=== PATIENT | female | born 1990 | race American Indian/Alaskan Native ===

== ENCOUNTER 2019-02-18 22:04 | Inpatient (IN) | payer OTHER, MEDICAID ==
[2019-02-18] MEDS ORDERED: ZOFRAN IV PRN (22:42)
[2019-02-18] MEDS ORDERED: BRETHINE IVP PRN (22:42)
[2019-02-18] MEDS ORDERED: SUBLIMAZE IV PRN (22:42)
[2019-02-18] MEDS ORDERED: MINERAL OIL PO PRN (22:42)
[2019-02-18] MEDS ORDERED: AMPICILLIN/NS 2 GM/100 ML 2 GM/100 ML BAG IV ONE (22:42)
[2019-02-18] MEDS ORDERED: XYLOCAINE 2% INFILTRATI ONE (22:42)
--- NOTE | 2019-02-18 22:53 | History and Physical Report ---
History of Present Illness Date of examination: 02/18/19 Date of admission: 02/18/19 22:37 Chief complaint: labor History of present illness: patient reports contractions started on saturday, became more intense around 5-6 pm this evening. denies VB, LOF. +FM Past History Past Medical History: no pertinent history Past Surgical History: no surgical history MANAGER SHIP History: gonorrhea (pt reports hx of, treated). denies: abnormal PAP smear, cancer, chlamydia, fibroids, hepatitis B, hepatitis C, herpes, HIV, syphilis, trichomonas Family/Genetic History: none Social history: no significant social history, lives with family. denies: smoking, alcohol abuse, prescription drug abuse, IV drug use - Obstetrical History Expected Date of Delivery: 02/18/19 Actual Gestation: 40 Week(s) 1 Day(s) : 2 Para: 1 Hx # Term Pregnancies: 1 Number of Living Children: 1 Medications and Allergies Allergies Allergy/AdvReac Type Severity Reaction Status Date / Time No Known Allergies Allergy Verified 02/18/19 22:24 Active Meds: Active Medications Ephedrine Sulfate (Ephedrine Sulfate) 10 mg IV Q2M PRN PRN Reason: Hypotension Fentanyl (Sublimaze) 100 mcg IV Q2H PRN PRN Reason: Labor Pain Oxytocin/Sodium Chloride (Pitocin/Ns 20 Unit/1000ml Drip) 20 units in 1,000 mls @ 125 mls/hr IV DIRECT HUAN Lactated Ringer's (Lactated Ringers) 1,000 mls @ 125 mls/hr IV DIRECT HUAN Ampicillin Sodium (Ampicillin/Ns 1 Gm/50 Ml) 1 gm in 50 mls @ 100 mls/hr IV Q4HR HUAN; Protocol Lidocaine (Xylocaine 2%) 20 ml INFILTRATI ONCE ONE Stop: 02/18/19 22:43 Mineral Oil (Mineral Oil) 30 ml PO QHS PRN PRN Reason: Constipation Ondansetron HCl (Zofran) 4 mg IV Q8H PRN PRN Reason: Nausea And Vomiting Terbutaline Sulfate (Brethine) 0.25 mg IVP ONCE PRN PRN Reason: Hyperstimulation/Hypertonicity Review of Systems All systems: negative Genitourinary: contractions (painful, pain 8/10) - Physical Exam Breasts: Cardiovascular: Regular rate, Normal S1, Normal S2 Lungs: Positive: Clear to auscultation, Normal air movement Abdomen: Positive: normal appearance, soft, normal bowel sounds. Negative: distention, tenderness Genitourinary (Female): Positive: normal external genitalia, normal perenium Vulva: both: normal Vagina: Positive: normal moisture. Negative: discharge Cervix: Negative: lesion, discharge Uterus: Positive: normal size, normal contour Adnexa: both: normal Anus/Rectum: Positive: normal perianal skin. Negative: rectal mass, hemorrhoids Extremities: Deep Tendon Reflex Grade: Normal +2 - Obstetrical FHR: auscultation normal Cervical Dilatation: 4.5 (per furniture salesperson) Cervical Effacement Percentage: 80 station: -2 Uterine Contraction Pattern: Regular Uterine Tone Measurement Phase: Contraction Uterine Contraction Intensity: Moderate Results Result Diagrams: 02/19/19 00:41 All other labs normal. Assessment and Plan 28 y.o. IUP at 40w0d presents to triage as a walk-in pt with reported care at [place] with c/o labor. Per umbrella cutter, SVE 4.5/80/-2, vertex/IBOW. Pt reports GBS positive. NOAH sent for prenatalrecords. Routine admission labor orders in EMR, abx for GBW txmt. Will plan to bolus for epidural as patient desires. Dr. Blackman aware of pt admission and assessment, anticipate >
[2019-02-18] MEDS ORDERED: PITOCin/NS 20 UNIT/1000ML DRIP 20 UNITS/1,000 ML BAG IV SCH (23:00)
[2019-02-18] MEDS ORDERED: LACTATED RINGERS 1,000 ML IV SCH (23:00)
[2019-02-18] MEDS ORDERED: NARCAN 2 MG/2 ML IV PRN (23:40)
--- NOTE | 2019-02-18 23:43 | Anesthesia Consultation ---
Anesthesia Consult and Med Hx Date of service: 02/18/19 - Airway Anesthetic Teeth Evaluation: Good ROM Head & Neck: Adequate Mental/Hyoid Distance: Adequate Mallampati Class: Class III Intubation Access Assessment: Probably Good - Pulmonary Exam CTA: Yes - Cardiac Exam Cardiac Exam: RRR - Pre-Operative Health Status ASA Pre-Surgery Classification: ASA2 Proposed Anesthetic Plan: Epidural - Pulmonary Hx Smoking: No Hx Asthma: No Hx Respiratory Symptoms: No SOB: No COPD: No Home Oxygen Therapy: No Hx Pneumonia: No Hx Sleep Apnea: No - Cardiovascular System Hx Hypertension: No Hx Coronary Artery Disease: No Hx Heart Attack/AMI: No Hx Angina: No Hx Percutaneous Transluminal Coronary Angioplasty (PTCA): No Hx Cardia Arrhythmia: No Hx Pacemaker: No Hx Internal Defibrillator: No Hx Valvular Heart Disease: No Hx Heart Murmur: No Hx Peripheral Vascular Disease: No - Central Nervous System Hx Neuromuscular Disorder: No Hx Seizures: No CVA: No Hx Back Pain: Yes Hx Psychiatric Problems: No - Gastrointestinal Hx Ulcer: No Hx Gastroesophageal Reflux Disease: Yes - Endocrine Hx Renal Disease: No Hx End Stage Renal Disease: No Hx Cirrhosis: No Hx Liver Disease: No Hx Insulin Dependent Diabetes: No Hx Non-Insulin Dependent Diabetes: No Hx Thyroid Disease: No Hx Hypothyroidism: No Hx Hyperthyroidism: No - Hematic Hx Anemia: No Hx Sickle Cell Disease: No - Other Systems Hx Alcohol Use: No Hx Substance Use: No Hx Cancer: No Hx Obesity: Yes (BMI 42)
[2019-02-18] MEDS ORDERED: fentaNYL-BUPIV 2 MCG/ML-0.125% 200 MCG/100 ML BAG EPIDURAL SCH (23:45)
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
[2019-02-19 01:13] LABS: Hematocrit 32.6 % (30.3-42.9); Hemoglobin 10.9 gm/dl (10.1-14.3); Mean Corpuscular HGB Conc 34 % (30-34); Mean Corpuscular Volume 83 fl (79-97); Platelet Count 157 K/mm3 (140-440); Red Blood Count 3.94 M/mm3 (3.65-5.03); Red Cell Distribution Width 14.9 % (13.2-15.2)
[2019-02-19] MEDS ORDERED: ZOFRAN IV PRN (01:18)
[2019-02-19] MEDS ORDERED: PHENERGAN PR PRN (01:18)
[2019-02-19] MEDS ORDERED: PHENERGAN PO PRN (01:18)
[2019-02-19] MEDS ORDERED: DULCOLAX PR PRN (01:18)
[2019-02-19] MEDS ORDERED: TYLENOL PO PRN (01:18)
[2019-02-19] MEDS ORDERED: MILK OF MAGNESIA PO PRN (01:18)
[2019-02-19] MEDS ORDERED: BENADRYL PO PRN (01:18)
[2019-02-19] MEDS ORDERED: LANSINOH TP PRN (01:18)
[2019-02-19] MEDS ORDERED: TUCKS PAD TP PRN (01:18)
[2019-02-19 01:44] LABS: Hepatitis C Virus Antibody Non-Reactive (NonReactive)
[2019-02-19] MEDS ORDERED: PITOCin/NS 20 UNIT/1000ML DRIP 20 UNITS/1,000 ML BAG IV SCH (02:00)
[2019-02-19] MEDS ORDERED: SODIUM CHLORIDE FLUSH SYRINGE 10 ML IV NR (02:00)
[2019-02-19] MEDS: IBUPROFEN PO SCH ×4 (02:28→18:01)
[2019-02-19] MEDS ORDERED: AMPICILLIN/NS 1 GM/50 ML 1 GM/50 ML BAG IV SCH (02:47)
--- NOTE | 2019-02-19 06:37 | Progress Note ---
Assessment and Plan - Patient Problems (1) Spontaneous vaginal delivery Onset Date: ~02/18/19 Current Visit: Yes Status: Acute Plan to address problem: Pt OOB to toilet for AM care. VSS FF below umb Lochia small Perineum intact. H&H due @ noon Type & Rh pending Doing well s/p vag delivery P: continue pathway Advance as tolerated. Subjective - Subjective Date of service: 02/19/19 (pt w/o complaints) Principal diagnosis: Hour 6 s/p walk-in Patient reports: appetite normal, voiding normally, pain well controlled, ambulating normally [place]: doing well Objective - Vital Signs Latest vital signs: Vital Signs Temp Pulse Resp BP Pulse Ox 02/19/19 04:27 98.0 F 18 104/51 02/19/19 04:25 98.6 F 18 93/42 02/19/19 02:57 99.2 F 87 20 128/56 97 02/19/19 01:45 93 H 144/69 02/19/19 01:30 85 151/88 02/19/19 01:15 89 147/83 02/19/19 01:00 88 140/82 02/19/19 00:45 93 H 138/83 02/19/19 00:30 92 H 116/57 02/19/19 00:15 87 119/56 02/18/19 22:59 104 H 113/77 Intake and Output 02/18/19 02/18/19 02/19/19 14:59 22:59 06:59 Output Total 800 Balance -800 Output: Urine 800 Void 800 Other: Total, Output Amount 800 # Voids Void 1 Weight 270 lb Estimated Blood Loss 300 Patient Weight 02/19/19 06:59 Weight 270 lb - Exam Breasts: Present: normal Cardiovascular: Present: Regular rate Lungs: Present: Normal air movement Abdomen: Present: normal appearance, soft, normal bowel sounds Uterus: Present: normal, fundal height below umbilicus Extremities: Present: normal Deep Tendon Reflex Grade: Normal +2 Incision: Present: normal, dry, intact - Labs Labs: Abnormal lab results 02/19/19 Range/Units 00:41 WBC 14.5 H (4.5-11.0) K/mm3
[2019-02-19] MEDS: PRENATAL VITAMIN PO SCH (10:01)
[2019-02-19 13:29] LABS: Hematocrit 28.4 % (30.3-42.9); Hemoglobin 9.5 gm/dl (10.1-14.3)
[2019-02-20] MEDS: IBUPROFEN PO SCH ×3 (00:07→12:55)
[2019-02-20] MEDS ORDERED: BOOSTRIX IM ONE (06:00)
--- NOTE | 2019-02-20 09:27 | Discharge Summary ---
Providers - Providers Date of Admission: 02/18/19 22:37 Date of discharge: 02/20/19 Attending physician: SAI DONNELLY Primary care physician: ECHOCARDIOGRAPHY TECHNOLOGIST Hospitalization Reason for admission: labor Condition: Good Pertinent studies: post delivery H&H 9.5/28.4, acute anemia d/t blood loss at delivery, asymptomatic. Fe ordered Procedures: Hospital course: uncomplicated delivery and course Disposition: DC-01 TO HOME OR SELFCARE Core Measure Documentation - Palliative Care Palliative Care/ Comfort Measures: Not Applicable - Core Measures Any of the following diagnoses?: none Exam - Constitutional Vitals: Temp Pulse Resp BP Pulse Ox 98.2 F 81 18 107/60 97 02/20/19 08:05 02/20/19 08:05 02/20/19 08:05 02/20/19 08:05 02/19/19 15:27 General appearance: Present: no acute distress, well-nourished - EENT Eyes: Present: PERRL ENT: hearing intact, clear oral mucosa - Neck Neck: Present: supple, normal ROM - Respiratory Respiratory effort: normal Respiratory: bilateral: CTA - Cardiovascular Rhythm: regular Heart Sounds: Present: S1 & S2. Absent: rub, click - Extremities Extremities: pulses symmetrical, No edema Peripheral Pulses: within normal limits - Abdominal General gastrointestinal: Present: soft, non-tender, non-distended, normal bowel sounds Female genitourinary: Present: normal - Integumentary Integumentary: Present: clear, warm, dry - Musculoskeletal Musculoskeletal: gait normal, strength equal bilaterally - Psychiatric Psychiatric: appropriate mood/affect, intact judgment & insight - Neurologic Neurologic: CNII-XII intact, moves all extremities - Additional findings Additional findings: Patient resting in bed, reports being comfortable, denies any complaints or concerns. FUndus firm, ML, U/2. Vaginal bleeding is small, patient denies any heavy bleeding or clots. She reports pain is well controlled with motrin. Pt states is going well. DWP post delivery H&H and VS. She denies any dizziness or feeling faint with ambulation or position changes. Fe ordered and rx on chart. RN notified that rhogam work up needed d/t Rh negative blood type, order in EMR. Will discharge home once rhogam given. VSSAF. F/u appt in 4 weeks. Plan Activity: no restrictions Diet: regular Follow up with: PRIMARY CAREMD [Primary Care Provider] - 03/20/19 (Congratulations! Please call [phone] to schedule your appointment in 4 weeks. Please schedule your son's circumcision appointment in 1 week. Bring EMLA cream prescription with you to his appointment and await further instructions for use. Call with any questions or concerns. ) Prescriptions: Docusate Sodium [Colace] 100 mg PO BID PRN #60 capsule PRN Reason: Constipation Lidocain2.5%/Prilocai2.5% [Emla] 5 gm TP ONCE #1 tube Ferrous Sulfate [Feosol 325 MG tab] 325 mg PO BID #60 tablet
[2019-02-20] MEDS: PRENATAL VITAMIN PO SCH (10:34)
[2019-02-20 16:47] VITALS: BP 102/59
== END 2019-02-20 18:30 | disposition home or self-care (01) | DRG 807 ==
LOC: TRG 22:04 → LD 22:37 → OBSVTOIN 22:37 → OB 02-19 02:58
PROVIDERS: ADMIT Obstetrics & Gynecology; ATTEND Obstetrics & Gynecology
PROC: 10E0XZZ Delivery of Products of Conception, External Approach (ICD-10-PCS; principal; 2019-02-19)
PROC: 0KQM0ZZ Repair Perineum Muscle, Open Approach (ICD-10-PCS; 2019-02-19)
PROC: 3E0334Z Introduction of Serum, Toxoid and Vaccine into Peripheral Vein, Percutaneous Approach (ICD-10-PCS; 2019-02-20)
DX: O62.3 Precipitate labor (principal); Z37.0 Single live birth; O99.62 Diseases of the digestive system complicating childbirth; O99.214 Obesity complicating childbirth; E66.9 Obesity, unspecified; K21.9 Gastro-esophageal reflux disease without esophagitis; O99.824 Streptococcus B carrier state complicating childbirth; O70.1 Second degree perineal laceration during delivery; Z3A.40 40 weeks gestation of pregnancy
CPT/HCPCS: 36415; 85014; 85018; 85027; 85461; 86592; 86706; 86762; 86803; 86850; 86900; 86901; 87806; 90471; 90715; G0378; J0290; J2590; J2790; J3010; J7120

== ENCOUNTER 2019-06-01 23:52 | Emergency (ER) | payer MEDICAID, OTHER ==
[2019-06-02 00:33] VITALS: BP 151/88
[2019-06-02] MEDS ORDERED: IBUPROFEN 800 MG TAB PO ONE (00:49)
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
== END 2019-06-02 04:30 | disposition home or self-care (01) ==
LOC: ED 23:52
DX: S16.1XXA Strain of muscle, fascia and tendon at neck level, initial encounter (principal); H65.01 Acute serous otitis media, right ear; Z79.899 Other long term (current) drug therapy; X58.XXXA Exposure to other specified factors, initial encounter; Y93.89 Activity, other specified; Y92.89 Other specified places as the place of occurrence of the external cause; Y99.8 Other external cause status
CPT/HCPCS: 72040; 99283

== ENCOUNTER 2019-09-21 09:49 | Emergency (ER) | payer MEDICAID, OTHER ==
[2019-09-21 10:06] VITALS: BP 149/86
--- NOTE | 2019-09-21 13:50 | Emergency Department Report ---
- General Chief complaint: Skin/Abscess/Foreign Body Stated complaint: SPIDER BITE RIGHT BREAST Time Seen by Provider: 09/21/19 12:06 Source: patient Mode of arrival: Ambulatory Limitations: No Limitations - History of Present Illness Initial comments: This is a 29-year-old female nontoxic, well nourished in appearance, no acute signs of distress presents to the ED with c/o of right side breast redness and some drainage. Patient stated has some purulent drainage. Patient denies any fever, chills, nausea, vomiting, chest pain, shortness of breath, headache or stiff neck. Patient denies any allergies or significant past medical history. -: days(s) Tetanus Up to Date: no Severity: mild Severity scale (0 -10): 8 Quality: aching Consistency: constant Improves with: none Worsens with: none Context: none Associated symptoms: denies other symptoms Treatments Prior to Arrival: none - Related Data Previous Rx's Medication Instructions Recorded Last Taken Type Docusate Sodium [Colace] 100 mg PO BID PRN #60 capsule 02/20/19 Unknown Rx Ferrous Sulfate [Feosol 325 MG tab] 325 mg PO BID #60 tablet 02/20/19 Unknown Rx Lidocain2.5%/Prilocai2.5% [Emla] 5 gm TP ONCE #1 tube 02/20/19 Unknown Rx Amoxicillin [Trimox CAP] 500 mg PO Q8H #30 capsule 06/02/19 Unknown Rx Ibuprofen [Motrin 800 MG tab] 800 mg PO Q8HR PRN #30 tablet 06/02/19 Unknown Rx Sulfamethoxazole/Trimethoprim 1 each PO BID #14 tablet 09/21/19 Unknown Rx [Bactrim DS TAB] Allergies Allergy/AdvReac Type Severity Reaction Status Date / Time No Known Allergies Allergy Verified 02/18/19 22:24 Abscess Boil HPI - HPI Chief Complaint: Skin/Abscess/Foreign Body Stated Complaint: SPIDER BITE RIGHT BREAST Time Seen by Provider: 09/21/19 12:06 Home Medications: Previous Rx's Medication Instructions Recorded Last Taken Type Docusate Sodium [Colace] 100 mg PO BID PRN #60 capsule 02/20/19 Unknown Rx Ferrous Sulfate [Feosol 325 MG tab] 325 mg PO BID #60 tablet 02/20/19 Unknown Rx Lidocain2.5%/Prilocai2.5% [Emla] 5 gm TP ONCE #1 tube 02/20/19 Unknown Rx Amoxicillin [Trimox CAP] 500 mg PO Q8H #30 capsule 06/02/19 Unknown Rx Ibuprofen [Motrin 800 MG tab] 800 mg PO Q8HR PRN #30 tablet 06/02/19 Unknown Rx Sulfamethoxazole/Trimethoprim 1 each PO BID #14 tablet 09/21/19 Unknown Rx [Bactrim DS TAB] Allergies/Adverse Reactions: Allergies Allergy/AdvReac Type Severity Reaction Status Date / Time No Known Allergies Allergy Verified 02/18/19 22:24 ED Review of Systems ROS: Stated complaint: SPIDER BITE RIGHT BREAST Other details as noted in HPI Constitutional: denies: chills, fever Eyes: denies: eye pain, eye discharge, vision change ENT: denies: ear pain, throat pain Respiratory: denies: cough, shortness of breath, wheezing Cardiovascular: denies: chest pain, palpitations Endocrine: no symptoms reported Gastrointestinal: denies: abdominal pain, nausea, diarrhea Genitourinary: denies: urgency, dysuria, discharge Musculoskeletal: denies: back pain, joint swelling, arthralgia Skin: denies: rash, lesions Neurological: denies: headache, weakness, paresthesias Psychiatric: denies: anxiety, depression Hematological/Lymphatic: denies: easy bleeding, easy bruising ED Past Medical Hx - Past Medical History Previous Medical History?: No Hx Hypertension: No Hx Heart Attack/AMI: No Hx Congestive Heart Failure: No Hx Diabetes: No Hx Deep Vein Thrombosis: No Hx Liver Disease: No Hx Renal Disease: No Hx Sickle Cell Disease: No Hx Seizures: No Hx Asthma: No Hx COPD: No Hx HIV: No - Surgical History Past Surgical History?: Yes Hx Pacemaker: No Hx Internal Defibrillator: No Additional Surgical History: Hernia - Social History Smoking Status: Never Smoker Substance Use Type: None - Medications Home Medications: Home Medications Medication Instructions Recorded Confirmed Last Taken Type Docusate Sodium [Colace] 100 mg PO BID PRN #60 capsule 02/20/19 Unknown Rx Ferrous Sulfate [Feosol 325 MG tab] 325 mg PO BID #60 tablet 02/20/19 Unknown Rx Lidocain2.5%/Prilocai2.5% [Emla] 5 gm TP ONCE #1 tube 02/20/19 Unknown Rx Amoxicillin [Trimox CAP] 500 mg PO Q8H #30 capsule 06/02/19 Unknown Rx Ibuprofen [Motrin 800 MG tab] 800 mg PO Q8HR PRN #30 tablet 06/02/19 Unknown Rx Sulfamethoxazole/Trimethoprim 1 each PO BID #14 tablet 09/21/19 Unknown Rx [Bactrim DS TAB] ED Physical Exam - General Limitations: No Limitations General appearance: alert, in no apparent distress - Head Head exam: Present: atraumatic, normocephalic - Neck Neck exam: Present: normal inspection, full ROM - Extremities Exam Extremities exam: Present: normal inspection, full ROM - Back Exam Back exam: Present: normal inspection, full ROM - Neurological Exam Neurological exam: Present: alert, oriented X3, normal gait - Psychiatric Psychiatric exam: Present: normal affect, normal mood - Skin Skin exam: Present: warm, dry, intact, normal color. Absent: rash - Other Other exam information: right 2 cm x 2 cm redness with some drinage. No induration or flutance noted. ED Course Vital Signs 09/21/19 10:04 Temperature 98.8 F Pulse Rate 86 Respiratory 18 Rate Blood Pressure 149/86 O2 Sat by Pulse 98 Oximetry - Reevaluation(s) Reevaluation #1: 09/21/19 13:50 Patient is speaking in full sentences with no signs of distress noted. ED Medical Decision Making - Medical Decision Making This is a 29-year-old male that presents with cellulitis. Patient is stable and was examined by me. There is no induration, fluctuance. No signs of abscess formation. The area has been outlined with a permanent marker and patient was instructed to observe symptoms of increased redness or swelling and to return to the ER if this does occur. I will discharge patient with Bactrim. Patient did receive a tetanus booster in the ER. Patient was referred to Follow-up with a primary care doctor in 3-5 days or if symptoms worsen and continue return to emergency room as soon as possible. At time of discharge, the patient does not seem toxic or ill in appearance. No acute signs of distress noted. Patient agrees to discharge treatment plan of care. No further questions noted by the patient. Critical care attestation.: If time is entered above; I have spent that time in minutes in the direct care of this critically ill patient, excluding procedure time. ED Disposition Clinical Impression: Cellulitis Qualifiers: Site of cellulitis: other site Qualified Code(s): L03.818 - Cellulitis of other sites Disposition: DC-01 TO HOME OR SELFCARE Is pt being admited?: No Does the pt Need Aspirin: No Condition: Stable Instructions: Cellulitis (ED) Additional Instructions: Follow-up with a primary care doctor in 3-5 days or if symptoms worsen and continue return to emergency room as soon as possible. Prescriptions: Sulfamethoxazole/Trimethoprim [Bactrim DS TAB] 1 each PO BID #14 tablet Referrals: CARYL PARKERGRAFORD MD DALIA [Primary Care Provider] - 3-5 Days PRIMARY CAREMD [Referring] - 3-5 Days LIV RIDLEY MD [Staff Physician] - 3-5 Days Forms: Work/School Release Form(ED)
== END 2019-09-21 14:08 | disposition home or self-care (01) ==
LOC: ED 09:49
DX: N61.0 Mastitis without abscess (principal)
CPT/HCPCS: 99281

== ENCOUNTER 2020-02-08 18:38 | Emergency (ER) | payer OTHER ==
[2020-02-08 19:41] VITALS: BP 156/101
--- NOTE | 2020-02-08 21:43 | Emergency Department Report ---
ED ENT HPI - General Chief complaint: Earache Stated complaint: EAR INFECTION Time Seen by Provider: 02/08/20 21:35 Source: patient Mode of arrival: Ambulatory Limitations: No Limitations - History of Present Illness Initial comments: Patient is a 29-year-old female presents emergency room with complaints of right ear pain that began a couple of days ago. She states that it feels like her right ear is close. She denies any drainage from the ear. She states that now her left ear has began to cause discomfort as well. She states that she has not had a subjective fever. She denies any vomiting, diarrhea, cough, sore throat, chest pain, shortness of breath. She denies any past medical history or allergies to medications. She denies any recent antibiotics. - Related Data Previous Rx's Medication Instructions Recorded Last Taken Type Docusate Sodium [Colace] 100 mg PO BID PRN #60 capsule 02/20/19 Unknown Rx Ferrous Sulfate [Feosol 325 MG tab] 325 mg PO BID #60 tablet 02/20/19 Unknown Rx Lidocain2.5%/Prilocai2.5% [Emla] 5 gm TP ONCE #1 tube 02/20/19 Unknown Rx Amoxicillin [Trimox CAP] 500 mg PO Q8H #30 capsule 06/02/19 Unknown Rx Ibuprofen [Motrin 800 MG tab] 800 mg PO Q8HR PRN #30 tablet 06/02/19 Unknown Rx Sulfamethoxazole/Trimethoprim 1 each PO BID #14 tablet 09/21/19 Unknown Rx [Bactrim DS TAB] Amoxicillin/Potassium Clav 1 each PO BID 10 Days #20 tablet 02/08/20 Unknown Rx [Augmentin 875-125 Tablet] Ofloxacin 0.3% [Floxin 0.3% Otic] 10 drops AD DAILY 10 Days #1 bottle 02/08/20 Unknown Rx Allergies Allergy/AdvReac Type Severity Reaction Status Date / Time No Known Allergies Allergy Verified 02/18/19 22:24 ED Dental HPI - General Chief complaint: Earache Stated complaint: EAR INFECTION Time Seen by Provider: 02/08/20 21:35 Source: patient Mode of arrival: Ambulatory Limitations: No Limitations - Related Data Previous Rx's Medication Instructions Recorded Last Taken Type Docusate Sodium [Colace] 100 mg PO BID PRN #60 capsule 02/20/19 Unknown Rx Ferrous Sulfate [Feosol 325 MG tab] 325 mg PO BID #60 tablet 02/20/19 Unknown Rx Lidocain2.5%/Prilocai2.5% [Emla] 5 gm TP ONCE #1 tube 02/20/19 Unknown Rx Amoxicillin [Trimox CAP] 500 mg PO Q8H #30 capsule 06/02/19 Unknown Rx Ibuprofen [Motrin 800 MG tab] 800 mg PO Q8HR PRN #30 tablet 06/02/19 Unknown Rx Sulfamethoxazole/Trimethoprim 1 each PO BID #14 tablet 09/21/19 Unknown Rx [Bactrim DS TAB] Amoxicillin/Potassium Clav 1 each PO BID 10 Days #20 tablet 02/08/20 Unknown Rx [Augmentin 875-125 Tablet] Ofloxacin 0.3% [Floxin 0.3% Otic] 10 drops AD DAILY 10 Days #1 bottle 02/08/20 Unknown Rx Allergies Allergy/AdvReac Type Severity Reaction Status Date / Time No Known Allergies Allergy Verified 02/18/19 22:24 ED Review of Systems ROS: Stated complaint: EAR INFECTION Other details as noted in HPI Comment: All other systems reviewed and negative ED Past Medical Hx - Past Medical History Previous Medical History?: No Hx Hypertension: No Hx Heart Attack/AMI: No Hx Congestive Heart Failure: No Hx Diabetes: No Hx Deep Vein Thrombosis: No Hx Liver Disease: No Hx Renal Disease: No Hx Sickle Cell Disease: No Hx Seizures: No Hx Asthma: No Hx COPD: No Hx HIV: No - Surgical History Past Surgical History?: Yes Hx Pacemaker: No Hx Internal Defibrillator: No Additional Surgical History: Hernia - Social History Smoking Status: Never Smoker Substance Use Type: None - Medications Home Medications: Home Medications Medication Instructions Recorded Confirmed Last Taken Type Docusate Sodium [Colace] 100 mg PO BID PRN #60 capsule 02/20/19 Unknown Rx Ferrous Sulfate [Feosol 325 MG tab] 325 mg PO BID #60 tablet 02/20/19 Unknown Rx Lidocain2.5%/Prilocai2.5% [Emla] 5 gm TP ONCE #1 tube 02/20/19 Unknown Rx Amoxicillin [Trimox CAP] 500 mg PO Q8H #30 capsule 06/02/19 Unknown Rx Ibuprofen [Motrin 800 MG tab] 800 mg PO Q8HR PRN #30 tablet 06/02/19 Unknown Rx Sulfamethoxazole/Trimethoprim 1 each PO BID #14 tablet 09/21/19 Unknown Rx [Bactrim DS TAB] Amoxicillin/Potassium Clav 1 each PO BID 10 Days #20 tablet 02/08/20 Unknown Rx [Augmentin 875-125 Tablet] Ofloxacin 0.3% [Floxin 0.3% Otic] 10 drops AD DAILY 10 Days #1 bottle 02/08/20 Unknown Rx ED Physical Exam - General Limitations: No Limitations General appearance: alert, in no apparent distress - Head Head exam: Present: atraumatic, normocephalic - Eye Eye exam: Present: normal appearance - ENT ENT exam: Present: mucous membranes moist, other (left TM is erythematous with purulence behind the TM, left canal is normal, right canal is edematous with scaling present, difficult to visualize full TM but visualized portion is normal in appearance) - Neurological Exam Neurological exam: Present: alert, oriented X3 - Psychiatric Psychiatric exam: Present: normal affect, normal mood - Skin Skin exam: Present: warm, dry, intact ED Course Vital Signs 02/08/20 19:29 Temperature 99.2 F Pulse Rate 104 H Respiratory 14 Rate Blood Pressure 156/101 O2 Sat by Pulse 100 Oximetry ED Medical Decision Making - Medical Decision Making Patient is a 29-year-old female presents emergency room with complaints of right ear pain that began a couple of days ago. She states that it feels like her right ear is close. She denies any drainage from the ear. She states that now her left ear has began to cause discomfort as well. She states that she has not had a subjective fever. She denies any vomiting, diarrhea, cough, sore throat, chest pain, shortness of breath. She denies any past medical history or allergies to medications. She denies any recent antibiotics. VSS. on exam: left TM is erythematous with purulence behind the TM, left canal is normal, right can al is edematous with scaling present, difficult to visualize full TM but visualized portion is normal in appearance. Examination consistent with otitis externa and otitis media. Patient given prescription for Augmentin and antibiotic eardrops. Advised patient Please use medication as prescribed. May take Tylenol or ibuprofen as needed for discomfort. Please follow-up with a primary care doctor for ear recheck in the next 3 days. Return to emergency room for any new or worsening symptoms. Critical care attestation.: If time is entered above; I have spent that time in minutes in the direct care of this critically ill patient, excluding procedure time. ED Disposition Clinical Impression: Left otitis media Qualifiers: Otitis media type: suppurative Chronicity: acute Recurrence: non-recurrent Spontaneous tympanic membrane rupture: without spontaneous rupture Qualified Code(s): H66.002 - Acute suppurative otitis media without spontaneous rupture of ear drum, left ear Right otitis externa Qualifiers: Otitis externa type: unspecified type Chronicity: acute Qualified Code(s): H60.501 - Unspecified acute noninfective otitis externa, right ear Disposition: - TO HOME OR SELFCARE Is pt being admited?: No Does the pt Need Aspirin: No Condition: Stable Instructions: Otitis Externa (ED), Otitis Media (ED) Additional Instructions: Please use medication as prescribed. May take Tylenol or ibuprofen as needed for discomfort. Please follow-up with a primary care doctor for ear recheck in the next 3 days. Return to emergency room for any new or worsening symptoms. Prescriptions: Amoxicillin/Potassium Clav [Augmentin 875-125 Tablet] 1 each PO BID 10 Days #20 tablet Ofloxacin 0.3% [Floxin 0.3% Otic] 10 drops AD DAILY 10 Days #1 bottle Referrals: LIV RIDLEY MD [Staff Physician] - 3-5 Days [facility] [Provider Group] - 3-5 Days [facility] [Outside] - 3-5 Days Time of Disposition: 21:41 Print Language: KINYARWANDA
== END 2020-02-08 21:47 | disposition home or self-care (01) ==
LOC: ED 18:38
DX: H66.92 Otitis media, unspecified, left ear (principal); H60.91 Unspecified otitis externa, right ear
CPT/HCPCS: 99281

== ENCOUNTER 2020-06-04 18:50 | Emergency (ER) | payer OTHER ==
[2020-06-04 18:55] VITALS: BP 150/90
--- NOTE | 2020-06-04 19:33 | Emergency Department Report ---
ED ENT HPI - General Chief complaint: Earache Stated complaint: EAR PAIN Time Seen by Provider: 06/04/20 19:17 Source: patient Mode of arrival: Ambulatory Limitations: No Limitations - History of Present Illness Initial comments: Patient is a 29-year-old female presents emergency room with complaints of bilateral ear pain that began 2 days ago. She states that the hearing in her left ear feels slightly muffled. She denies any ear drainage, fever, vomiting, diarrhea, chills she denies anything getting into the ear. She denies any sick contacts or recent travel. She states that she had an ear infection in February and another ear infection 3 weeks ago. She has not seen an ENT doctor. No past medical history. No allergies to medications. - Related Data Previous Rx's Medication Instructions Recorded Last Taken Type Docusate Sodium [Colace] 100 mg PO BID PRN #60 capsule 02/20/19 Unknown Rx Ferrous Sulfate [Feosol 325 MG tab] 325 mg PO BID #60 tablet 02/20/19 Unknown Rx Lidocain2.5%/Prilocai2.5% [Emla] 5 gm TP ONCE #1 tube 02/20/19 Unknown Rx Amoxicillin [Trimox CAP] 500 mg PO Q8H #30 capsule 06/02/19 Unknown Rx Ibuprofen [Motrin 800 MG tab] 800 mg PO Q8HR PRN #30 tablet 06/02/19 Unknown Rx Amoxicillin/Potassium Clav 1 each PO BID 10 Days #20 tablet 06/04/20 Unknown Rx [Augmentin 875-125 Tablet] Ofloxacin 0.3% [Floxin 0.3% Otic] 10 drops AD DAILY 10 Days #1 bottle 06/04/20 Unknown Rx Allergies Allergy/AdvReac Type Severity Reaction Status Date / Time No Known Allergies Allergy Verified 02/18/19 22:24 ED Dental HPI - General Chief complaint: Earache Stated complaint: EAR PAIN Time Seen by Provider: 06/04/20 19:17 Source: patient Mode of arrival: Ambulatory Limitations: No Limitations - Related Data Previous Rx's Medication Instructions Recorded Last Taken Type Docusate Sodium [Colace] 100 mg PO BID PRN #60 capsule 02/20/19 Unknown Rx Ferrous Sulfate [Feosol 325 MG tab] 325 mg PO BID #60 tablet 02/20/19 Unknown Rx Lidocain2.5%/Prilocai2.5% [Emla] 5 gm TP ONCE #1 tube 02/20/19 Unknown Rx Amoxicillin [Trimox CAP] 500 mg PO Q8H #30 capsule 06/02/19 Unknown Rx Ibuprofen [Motrin 800 MG tab] 800 mg PO Q8HR PRN #30 tablet 06/02/19 Unknown Rx Amoxicillin/Potassium Clav 1 each PO BID 10 Days #20 tablet 06/04/20 Unknown Rx [Augmentin 875-125 Tablet] Ofloxacin 0.3% [Floxin 0.3% Otic] 10 drops AD DAILY 10 Days #1 bottle 06/04/20 Unknown Rx Allergies Allergy/AdvReac Type Severity Reaction Status Date / Time No Known Allergies Allergy Verified 02/18/19 22:24 ED Review of Systems ROS: Stated complaint: EAR PAIN Other details as noted in HPI Comment: All other systems reviewed and negative ED Past Medical Hx - Past Medical History Previous Medical History?: No Hx Hypertension: No Hx Heart Attack/AMI: No Hx Congestive Heart Failure: No Hx Diabetes: No Hx Deep Vein Thrombosis: No Hx Liver Disease: No Hx Renal Disease: No Hx Sickle Cell Disease: No Hx Seizures: No Hx Asthma: No Hx COPD: No Hx HIV: No - Surgical History Past Surgical History?: Yes Hx Pacemaker: No Hx Internal Defibrillator: No Additional Surgical History: Hernia - Social History Smoking Status: Never Smoker Substance Use Type: None - Medications Home Medications: Home Medications Medication Instructions Recorded Confirmed Last Taken Type Docusate Sodium [Colace] 100 mg PO BID PRN #60 capsule 02/20/19 Unknown Rx Ferrous Sulfate [Feosol 325 MG tab] 325 mg PO BID #60 tablet 02/20/19 Unknown Rx Lidocain2.5%/Prilocai2.5% [Emla] 5 gm TP ONCE #1 tube 02/20/19 Unknown Rx Amoxicillin [Trimox CAP] 500 mg PO Q8H #30 capsule 06/02/19 Unknown Rx Ibuprofen [Motrin 800 MG tab] 800 mg PO Q8HR PRN #30 tablet 06/02/19 Unknown Rx Amoxicillin/Potassium Clav 1 each PO BID 10 Days #20 tablet 06/04/20 Unknown Rx [Augmentin 875-125 Tablet] Ofloxacin 0.3% [Floxin 0.3% Otic] 10 drops AD DAILY 10 Days #1 bottle 06/04/20 Unknown Rx ED Physical Exam - General Limitations: No Limitations General appearance: alert, in no apparent distress - Head Head exam: Present: atraumatic, normocephalic - Eye Eye exam: Present: normal appearance - ENT ENT exam: Present: mucous membranes moist, other (right TM perforation, right canal is normal, no erythema or purulence to the right ear, left TM is erythematous with purulence behind the TM, left ear canal is erythematous, scaling, with small amount of purulent drainage, left TM with no perforation ) - Respiratory Respiratory exam: Present: normal lung sounds bilaterally. Absent: respiratory distress, wheezes, rales, rhonchi, stridor, chest wall tenderness, accessory muscle use, decreased breath sounds, prolonged expiratory - Cardiovascular Cardiovascular Exam: Present: regular rate, normal rhythm, normal heart sounds. Absent: systolic murmur, diastolic murmur, rubs, gallop - Neurological Exam Neurological exam: Present: alert, oriented X3 - Psychiatric Psychiatric exam: Present: normal affect, normal mood - Skin Skin exam: Present: warm, dry, intact ED Course Vital Signs 06/04/20 18:54 Temperature 98.7 F Pulse Rate 90 Respiratory 16 Rate Blood Pressure 150/90 O2 Sat by Pulse 95 Oximetry ED Medical Decision Making - Medical Decision Making Patient is a 29-year-old female presents emergency room with complaints of bilateral ear pain that began 2 days ago. She states that the hearing in her left ear feels slightly muffled. She denies any ear drainage, fever, vomiting, diarrhea, chills she denies anything getting into the ear. She denies any sick contacts or recent travel. She states that she had an ear infection in February and another ear infection 3 weeks ago. She has not seen an ENT doctor. No past medical history. No allergies to medications. vss. on exam:right TM perforation, right canal is normal, no erythema or purulence to the right ear, left TM is erythematous with purulence behind the TM, left ear canal is erythematous, scaling, with small amount of purulent drainage, left TM with no perforation . Examination appears consistent with left-sided otitis media and externa. Right TM perforation. Discussed findings with patient. Discussed the concern for frequent ear infections and perforation and the need to follow-up with ENT, stressed the importance of ENT follow-up, patient verbalized understanding. Patient given prescription for Augmentin and antibiotic eardrops. Advised patient to please use medication as prescribed. Follow-up with a ENT doctor. It is very important that you follow-up. Return to emergency room for any new or worsening symptoms. Critical care attestation.: If time is entered above; I have spent that time in minutes in the direct care of this critically ill patient, excluding procedure time. ED Disposition Clinical Impression: Otitis externa Qualifiers: Otitis externa type: unspecified type Chronicity: acute Laterality: left Qualified Code(s): H60.502 - Unspecified acute noninfective otitis externa, left ear Otitis media Qualifiers: Otitis media type: unspecified Chronicity: acute Qualified Code(s): H66.90 - Otitis media, unspecified, unspecified ear Ear drum perforation Qualifiers: Laterality: right Qualified Code(s): H72.91 - Unspecified perforation of tympanic membrane, right ear Disposition: TO HOME OR SELFCARE Is pt being admited?: No Does the pt Need Aspirin: No Condition: Stable Instructions: Otitis Externa (ED), Ruptured Eardrum (ED), Otitis Media (ED) Additional Instructions: please use medication as prescribed. Follow-up with a ENT doctor. It is very important that you follow-up. Return to emergency room for any new or worsening symptoms. Prescriptions: Amoxicillin/Potassium Clav [Augmentin 875-125 Tablet] 1 each PO BID 10 Days #20 tablet Ofloxacin 0.3% [Floxin 0.3% Otic] 10 drops AD DAILY 10 Days #1 bottle Referrals: SHON MCCARTNEY MD [Primary Care Provider] - 2-3 Days MACIEL RODRIGUEZ MD [Staff Physician] - 2-[facility] [employer] [facility] [Provider Group] - 2-3 Days ENT [facility] [Provider Group] - 2-3 Days Time of Disposition: 19:34 Print Language: FINNISH
== END 2020-06-04 20:07 | disposition home or self-care (01) ==
LOC: ED 18:50
DX: H66.93 Otitis media, unspecified, bilateral (principal); H60.93 Unspecified otitis externa, bilateral; H72.91 Unspecified perforation of tympanic membrane, right ear; Z79.899 Other long term (current) drug therapy; Z98.890 Other specified postprocedural states
CPT/HCPCS: 99282